=== PATIENT | female | born 1985 | race Caucasian/White ===

== ENCOUNTER → 2021-04-13 | Outpatient (CLI) | payer MEDICAID ==
[2016-12-07 13:25] VITALS: BP 117/63
[~2021-04-13] MED LIST: HYDR-2678 PO; ONDA4TAB7 PO
[2021-04-13 16:28] LABS: BASO % 0 % (0-3); EOS # 0.3 x10^3/uL (0.0-0.7); EOS % 3 % (0-3); HEMATOCRIT 39.8 % (36.0-47.0); HEMOGLOBIN 13.4 g/dL (12.0-15.5); LYMPH # 2.7 x10^3/uL (1.0-4.8); LYMPH % 27 % (24-48); MEAN CORPUSCULAR HEMOGLOBIN 30 pg (25-35); MEAN CORPUSCULAR HGB CONC 34 g/dL (31-37); MEAN CORPUSCULAR VOLUME 90 fL (79-100); MONO # 0.6 x10^3/uL (0.0-1.1); MONO % 6 % (0-9); NEUT # 6.3 x10^3uL (1.8-7.7); NEUT % 63 % (31-73); PLATELET COUNT 275 x10^3/uL (140-400); RED BLOOD COUNT 4.42 x10^6/uL (3.50-5.40); RED CELL DISTRIBUTION WIDTH 14.3 % (11.5-14.5); WHITE BLOOD COUNT 9.9 x10^3/uL (4.0-11.0)
[2021-04-13 16:35] LABS: ALBUMIN 3.9 g/dL (3.4-5.0); ALBUMIN/GLOBULIN RATIO 1.1 (1.0-1.7); CALCIUM 8.7 mg/dL (8.5-10.1); CREATININE 0.6 mg/dL (0.6-1.0); GFR 114.4; TOTAL BILIRUBIN 0.3 mg/dL (0.2-1.0); TOTAL PROTEIN 7.3 g/dL (6.4-8.2)
[2021-04-13 16:48] LABS: BILIRUBIN,URINE NEG (NEG); CLARITY,URINE CLOUDY; COLOR,URINE YELLOW; GLUCOSE,URINE NEG (NEG); NITRITE,URINE NEG (NEG); UROBILINOGEN,URINE 0.2 mg/dL (0.2 mg/dL)
[2021-04-13 16:55] LABS: AMMONIUM BIURATE PRESENT /HPF; BACTERIA,URINE 0 /HPF (0-FEW); SQUAMOUS EPITHELIAL CELL,UR OCC /LPF; WBC,URINE 0 /HPF (0-4)
== END ==
LOC: LAB 15:27
PROVIDERS: ATTEND Family Medicine
DX: L29.9 Pruritus, unspecified (principal)
CPT/HCPCS: 36415; 80053; 81001; 82977; 83690; 84443; 85025

== ENCOUNTER 2021-07-23 18:32 | Emergency (ER) | payer MEDICAID ==
[~2021-07-23] VITALS: Ht 152.4 cm; Wt 58.5 kg
--- NOTE | 2021-07-23 19:27 | PHYS DOC ---
Past History Past Medical History: Seizure Past Surgical History: Alcohol Use: Rarely Drug Use: Marijuana General Adult EDM: Chief Complaint: ABDOMINAL PAIN HPI: HPI: - Tonic clonic seizure- currently non- responsive to noxious stimuli- Patient is a 36 year old female who presents with above hx and complaints of abdomen pain. Pt. had a tonic clonic seizure in waiting room. Glucose was 56. Pt. moved from waiting room to Room 7. Remained post ictal post seizure. No family with patient. Old records shows past history of seizure disorder, C- section and migraine headaches in 11/2016 evaluation. Pt. follows with Dr. Li. Review of Systems: Review of Systems: Limited review of systems because of tonic-clonic seizure GI: Complains of abdominal pain, nausea,. At check-in. Family History: Family History: Not currently available Current Medications: Current Meds: See nursing for home meds Allergies: Allergies: Allergies Coded Allergies Type Severity Reaction Last Updated Verified No Known Drug Allergies 12/07/16 No Physical Exam: PE: Constitutional: Moderate acute distress, postictal and appearance. [] HENT: Normocephalic, atraumatic, bilateral external ears normal, oropharynx moist, no oral exudates, nose normal. [] Eyes: PERRLA, EOMI, conjunctiva normal, no discharge. No focal sensation of eye movement Neck: Normal range of motion, no tenderness, supple, no stridor. [] Cardiovascular: Tachycardia heart rate regular rhythm, no murmur [] Lungs & Thorax: Bilateral breath sounds equal apex scattered wheezes rhonchi on right auscultation [] Abdomen: Bowel sounds normal, soft, no tenderness, no masses, no pulsatile masses. Old surgery scar- C sections Skin: Warm, dry, no erythema, no rash. [] Back: No tenderness, no CVA tenderness. [] Extremities: No tenderness, no cyanosis, no clubbing, ROM intact, no edema. [] Neurologic: Nonresponsive to noxious stimuli. EKG: EKG: My interpretation EKG shows a sinus tachycardia 107 bpm. No findings acute STEMI of contralateral changes. Time EKG 1946 hrs. [] Radiology/Procedures: Radiology/Procedures: [address] [address] IMAGING REPORT Signed PATIENT: BUTCH LAZO ACCOUNT: [id number] : 1985 LOCATION: ER AGE: 36 SEX: F EXAM STATUS: REG ER ORD. PHYSICIAN: KONG CHRISTIANSEN MD REASON: pain brian umbilical, OMNI 240, 30ml & OMNI 300, 60ml PROCEDURE: CT ABD PELV W/ORAL&IV CONTRAST EXAM: CT Abdomen and Pelvis with IV contrast CLINICAL HISTORY: Reason: pain brian umbilical, OMNI 240, 30ml OMNI 300, 60ml / Spl. Instructions: / History: . COMPARISON: none TECHNIQUE: Helical CT of the abdomen and pelvis was performed following the administration of intravenous contrast. Axial, coronal and sagittal reformatted images were generated. PQRS compliance statement - One or more of the following individualized dose reduction techniques were utilized for this study: 1. Automated exposure control 2. Adjustment of the mA and/or kV according to patient size 3. Use of iterative reconstruction technique FINDINGS: Lower Chest: Normal bibasilar subsegmental atelectasis, right greater than left. Abdomen and Pelvis: The liver, gallbladder, spleen, pancreas, adrenals, kidneys are unremarkable. Subcentimeter left inferior pole hypodensity, too small to characterize favoring simple cysts. No nephrolithiasis or hydroureteronephrosis. Stomach is distended with likely ingested material. The small and large bowel demonstrate no evidence of obstruction or acute inflammatory process. Normal-appearing appendix is visualized. There is a 1.9 cm crenulated right ovarian follicle with a small amount of simple appearing fluid within the pelvis, consistent with a ruptured right corpus luteal cyst. No pathologic abdominal or pelvic adenopathy. Vasculature is normal in course and caliber. Bladder is unremarkable. Uterus is normal in appearance. Abdominal wall shows no evidence of acute process with a tiny fat-containing umbilical hernia. No acute osseous abnormalities IMPRESSION: Findings of ruptured right corpus luteal cyst with small amount of simple, likely physiologic fluid within the pelvis. Electronically signed by: Garcia Aleman DO (07/23/2021 11:23 PM) [facility] DICTATED AND SIGNED BY: GARCIA ALEMAN DO DATE: 07/23/21 7222 CC: ALONA LI MD; KONG CHRISTIANSEN MD ~MTH0 0 [][place] [address] [facility] [address] [place] [id number] IMAGING REPORT Signed PATIENT: BUTCH LAZO ACCOUNT: [id number] : 1985 LOCATION: ER AGE: 36 SEX: F EXAM STATUS: REG ER ORD. PHYSICIAN: KONG CHRISTIANSEN MD REASON: pain PROCEDURE: ACUTE ABDOMEN SERIES Exam: Acute abdominal series INDICATION: Pain TECHNIQUE: Frontal view of the chest with upright and supine views of the abdomen Comparisons: None FINDINGS: The cardiomediastinal silhouette and pulmonary vessels are within normal limits. The lung and pleural spaces are clear. Air and stool are noted throughout the colon to level the rectum in a nonobstructive bowel gas pattern. No suspicious masses or calcifications. Visualized osseous structures are unremarkable. IMPRESSION: 1. No acute cardiopulmonary process. 2. Nonobstructive bowel gas pattern. Electronically signed by: Komal Hewitt MD (07/23/2021 9:33 PM) [facility] DICTATED AND SIGNED BY: KOMAL HEWITT MD DATE: 07/23/212131 CC: ALONA LI MD; KONG CHRISTIANSEN MD ~MTH0 0 IMAGING REPORT Signed PATIENT: BUTCH LAZO ACCOUNT: [id number] : 1985 LOCATION: ER AGE: 36 SEX: F EXAM STATUS: REG ER ORD. PHYSICIAN: KONG CHRISTIANSEN MD REASON: tonic clonic seizure- Head ache, fall PROCEDURE: CT HEAD AND CERVICAL SPINE WO Exam: CT head and cervical spine without contrast INDICATION: , Chronic seizures TECHNIQUE: Sequential axial images through the head and cervical spine were obtained without the administration of IV contrast. Exposure: One or more of the following in the visualized dose reduction techniques were utilized for this examination: 1. Automated exposure control 2. Adjustment of the MA and/or KV according to patient size 3. Use of iterative of reconstructive technique Comparisons: None FINDINGS: Head: No focal parenchymal lesion or hemorrhage is identified. There is no midline shift or sulcal effacement. No acute vascular territory infarction is identified. Davidson-white distinction is preserved. The ventricular system is within normal limits without compression hydrocephalus. The basal cisterns are well maintained. The visualized portions of the paranasal sinuses and mastoid air cells are well- pneumatized. No acute fractures. Cervical spine: Straightening of cervical spine which may positional. Vertebral body heights are well-maintained. Fracture to the cervical spine is not identified. No significant spondylotic change in the cervical spine. Visualized paraspinal soft tissues are unremarkable. IMPRESSION: 1. No acute intracranial abnormality. 2. Negative CT C-spine for acute traumatic injury. Electronically signed by: Komal Hewitt MD (07/23/2021 8:56 PM) [facility] DICTATED AND SIGNED BY: KOMAL HEWITT MD DATE: 07/23/212053 CC: ALONA LI MD; KONG CHRISTIANSEN MD ~MTH0 0 Heart Score: C/O Chest Pain: N/A HEART Score for Chest Pain: HEART Score for Chest Pain Response (Comments) Value History Slighlty/Non-Suspicious 0 ECG Nonspecific Repolarizatio 1 Age < 45 0 Risk Factors 1 or 2 Risk Factors 1 Troponin < Normal Limit 0 Total 2 Risk Factors: Risk Factors: DM, Current or recent (<one month) smoker, HTN, HLP, family history of CAD, obesity. Risk Scores: Score 0 - 3: 2.5% MACE over next 6 weeks - Discharge Home Score 4 - 6: 20.3% MACE over next 6 weeks - Admit for Clinical Observation Score 7 - 10: 72.7% MACE over next 6 weeks - Early Invasive Strategies Course & Med Decision Making: Course & Med Decision Making Pertinent Labs and Imaging studies reviewed. (See chart for details) Pt. now alert and able to answer questions.=2100 hrs. Patient states she has increasingly severe abdomen pain throughout the day. Localizes pain to the periumbilical area. Patient states she has been compliant with her seizure meds consisting of Keppra and Topamax. Patient denies any intake of bad food. No recent travel. No specific ill contacts. Has not had Covid vaccination. Patient denies previous surgeries. Has had subjective fever and chills. . No history of trauma. Patient does smoke tobacco and marijuana. Impression: 1. Abdomen Pain 2. Tonic Clonic Seizure- on meds 3. Hx. prior 4. Tobacco and Marijuan Use 5. Leukocytosis 21. with 78 Segs 6. Mild Hypokaemia 3.2 7. Elevated Bun and Creat. 8. Hypoglycemia 9. Dehydration Elev. Bun 25./ creat. 1.1 10.Suspect Ovarian Cyst rupture. 11. Elevated D-dimer 0.98 12. Rt. lower abdomen pain [] Dragon Disclaimer: Dragon Disclaimer: This electronic medical record was generated, in whole or in part, using a voice recognition dictation system. Departure Departure: Referrals: ALONA LI MD (PCP) Scripts Cephalexin (KEFLEX) 500 Mg Capsule 500 MG PO TID for leukocytosis for 7 Days, #21 CAP Prov: KONG CHRISTIANSEN MD 07/24/21 Dragon Disclaimer This chart was dictated in whole or in part using Voice Recognition software in a busy, high-work load, and often noisy Emergency Department environment. It may contain unintended and wholly unrecognized errors or omissions. KONG CHRISTIANSEN MD Jul 23, 2021 19:27
[2021-07-23] MEDS ORDERED: IV RINGERS SOLUTION,LACTATED 1,000 ML IV SCH (19:45)
[2021-07-23 20:06] LABS: BASO # 0.1 x10^3/uL (0.0-0.2); BASO % 1 % (0-3); EOS % 0 % (0-3); HEMATOCRIT 48.4 % (36.0-47.0); HEMOGLOBIN 15.4 g/dL (12.0-15.5); LYMPH # 2.9 x10^3/uL (1.0-4.8); LYMPH % 11 % (24-48); MEAN CORPUSCULAR HEMOGLOBIN 30 pg (25-35); MEAN CORPUSCULAR HGB CONC 32 g/dL (31-37); MEAN CORPUSCULAR VOLUME 94 fL (79-100); MONO # 1.2 x10^3/uL (0.0-1.1); MONO % 5 % (0-9); NEUT # 21.8 x10^3uL (1.8-7.7); NEUT % 84 % (31-73); PLATELET COUNT 325 x10^3/uL (140-400); RED BLOOD COUNT 5.16 x10^6/uL (3.50-5.40); RED CELL DISTRIBUTION WIDTH 14.5 % (11.5-14.5); WHITE BLOOD COUNT 26.1 x10^3/uL (4.0-11.0)
[2021-07-23] MEDS ORDERED: DEXTROSE 50% 25 GM / 50ML DISP.SYRIN. IV ONE (20:15)
[2021-07-23 20:17] LABS: CLARITY,URINE CLEAR; COLOR,URINE YELLOW; GLUCOSE,URINE NEG (NEG)
[2021-07-23 20:18] LABS: BARBITURATES NEG (NEG); BENZODIAZEPINES NEG (NEG); BILIRUBIN,URINE MOD (NEG); CANNABINOIDS POS (NEG); COCAINE NEG (NEG); METHADONE NEG (NEG); NITRITE,URINE NEG (NEG); OPIATES NEG (NEG); PHENCYCLIDINE NEG (NEG); UROBILINOGEN,URINE 0.2 mg/dL (0.2 mg/dL)
[2021-07-23 20:22] LABS: AMPHETAMINE/METHAMPHETAMINE NEG (NEG)
[2021-07-23 20:24] LABS: ALBUMIN 4.7 g/dL (3.4-5.0); CALCIUM 9.8 mg/dL (8.5-10.1); CREATININE 1.1 mg/dL (0.6-1.0); DIRECT BILIRUBIN 0.1 mg/dL (0.0-0.2); GFR 56.9; MAGNESIUM 2.1 mg/dL (1.8-2.4); POTASSIUM 3.2 mmol/L (3.5-5.1); TOTAL BILIRUBIN 0.5 mg/dL (0.2-1.0); TOTAL PROTEIN 8.6 g/dL (6.4-8.2)
[2021-07-23 20:27] LABS: BACTERIA,URINE FEW /HPF (0-FEW); SQUAMOUS EPITHELIAL CELL,UR FEW /LPF
[2021-07-23 20:45] LABS: % LYMPHS 16 % (24-48); % MONOS 6 % (0-10); % SEGS 78 % (35-66); PLT ESTIMATE ADEQUATE (ADEQUATE)
--- NOTE | 2021-07-23 20:58 | RAD ---
Exam: CT head and cervical spine without contrast INDICATION: , Chronic seizures TECHNIQUE: Sequential axial images through the head and cervical spine were obtained without the admi nistration of IV contrast. Exposure: One or more of the following in the visualized dose reduction techniques were utilized for this examination: 1. Automated exposure control 2. Adjustment of the MA and/or KV according to patient size 3. Use of iterative of reconstructive technique Comparisons: None FINDINGS: Head: No focal parenchymal lesion or hemorrhage is identified. There is no midline shift or sulcal effaceme nt. No acute vascular territory infarction is identified. Davidson-white distinction is preserved. The ventricular system is within normal limits without compression hydrocephalus. The basal cisterns are well maintained. The visualized portions of the paranasal sinuses and mastoid air cells are well-pneumatized. No acute fractures. Cervical spine: Straightening of cervical spine which may positional. Vertebral body heights are well-maintained. Fracture to the cervical spine is not identified. No significant spondylotic change in the cervical spine. Visualized paraspinal soft tissues are unremarkable. IMPRESSION: 1. No acute intracranial abnormality. 2. Negative CT C-spine for acute traumatic injury. Electronically signed by: Komal Anand MD (07/23/2021 8:56 PM) [facility]
[2021-07-23] MEDS ORDERED: TOPIRAMATE 25 MG TABLET. PO ONE (21:30)
[2021-07-23] MEDS ORDERED: IOHEXOL 300 MG/ML 75 ML VIAL. IV ONE (21:30)
[2021-07-23] MEDS ORDERED: ONDANSETRON PF 4 MG/2 ML VIAL. IVP ONE (21:30)
[2021-07-23] MEDS ORDERED: IOHEXOL 240 MG/ML 50ML VIAL. PO ONE (21:30)
[2021-07-23] MEDS ORDERED: FAMOTIDINE 20 MG/2 ML VIAL IVP ONE (21:30)
[2021-07-23] MEDS ORDERED: CONTRAST GIVEN. MC PRN (21:30)
[2021-07-23] MEDS ORDERED: MORPHINE SULFATE 10 MG/ML SYRINGE. SQ ONE (21:30)
--- NOTE | 2021-07-23 21:35 | RAD ---
Exam: Acute abdominal series INDICATION: Pain TECHNIQUE: Frontal view of the chest with upright and supine views of the abdomen Comparisons: None FINDINGS: The cardiomediastinal silhouette and pulmonary vessels are within normal limits. The lung and pleural spaces are clear. Air and stool are noted throughout the colon to level the rectum in a nonobstructive bowel gas patter n. No suspicious masses or calcifications. Visualized osseous structures are unremarkable. IMPRESSION: 1. No acute cardiopulmonary process. 2. Nonobstructive bowel gas pattern. Electronically signed by: Komal Anand MD (07/23/2021 9:33 PM) [facility]
--- NOTE | 2021-07-23 21:48 | EKG ---
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
[2021-07-23] MEDS ORDERED: levETIRAcetam 500 MG/5 ML VIAL IV ONE (22:09)
[2021-07-23] MEDS ORDERED: IV NORMAL SALINE 100ML 100 ML ONE (22:09)
--- NOTE | 2021-07-23 23:26 | RAD ---
EXAM: CT Abdomen and Pelvis with IV contrast CLINICAL HISTORY: Reason: pain brian umbilical, OMNI 240, 30ml OMNI 300, 60ml / Spl. Instructions: / History: . COMPARISON: none TECHNIQUE: Helical CT of the abdomen and pelvis was performed following the administration of intrave nous contrast. Axial, coronal and sagittal reformatted images were generated. PQRS compliance statement - One or more of the following individualized dose reduction techniques wer e utilized for this study: 1. Automated exposure control 2. Adjustment of the mA and/or kV according to patient size 3. Use of iterative reconstruction technique FINDINGS: Lower Chest: Normal bibasilar subsegmental atelectasis, right greater than left. Abdomen and Pelvis: The liver, gallbladder, spleen, pancreas, adrenals, kidneys are unremarkable. Subcentimeter left infe rior pole hypodensity, too small to characterize favoring simple cysts. No nephrolithiasis or hydrour eteronephrosis. Stomach is distended with likely ingested material. The small and large bowel demonst rate no evidence of obstruction or acute inflammatory process. Normal-appearing appendix is visualize d. There is a 1.9 cm crenulated right ovarian follicle with a small amount of simple appearing fluid within the pelvis, consistent with a ruptured right corpus luteal cyst. No pathologic abdominal or pelvic adenopathy. Vasculature is normal in course and caliber. Bladder is unremarkable. Uterus is normal in appearance. Abdominal wall shows no evidence of acute process with a tiny fat-containing umbilical hernia. No acute osseous abnormalities IMPRESSION: Findings of ruptured right corpus luteal cyst with small amount of simple, likely physiologic fluid w ithin the pelvis. Electronically signed by: Ton Aleman DO (07/23/2021 11:23 PM) [facility]
[2021-07-23] MEDS ORDERED: IV NORMAL SALINE 50ML 50 ML ONE (23:45)
[2021-07-23] MEDS ORDERED: cefTRIAXone SODIUM 1 GM VIAL ONE (23:45)
[2021-07-24] MEDS ORDERED: CEPH500C PO (00:31)
[2021-07-24] MEDS ORDERED: APIXABAN 5 MG TABLET. PO ONE (01:00)
[2021-07-24 01:24] VITALS: BP 108/67
== END 2021-07-24 01:45 | disposition home or self-care (01) ==
LOC: ER 18:35
DX: G40.909 Epilepsy, unspecified, not intractable, without status epilepticus (principal); D72.89 Other specified disorders of white blood cells; E87.6 Hypokalemia; R79.89 Other specified abnormal findings of blood chemistry; E16.2 Hypoglycemia, unspecified; E86.0 Dehydration; R79.1 Abnormal coagulation profile; R10.31 Right lower quadrant pain; G43.909 Migraine, unspecified, not intractable, without status migrainosus; Z98.890 Other specified postprocedural states
CPT/HCPCS: 36415; 70450; 72125; 74022; 74177; 80048; 80076; 80307; 81001; 81025; 82150; 82550; 82947; 83690; 83735; 83880; 84443; 84484; 84702; 85007; 85025; 85379; 85610; 85730; 87040; 93005; 96361; 96365; 96368; 96375; 99285; J0696; J1953; J2060; J2405; J3490; J7120; Q9966; Q9967

== ENCOUNTER 2021-08-20 16:39 | Emergency (ER) | payer MEDICAID ==
[~2021-08-20] VITALS: Ht 152.4 cm; Wt 58.5 kg
[~2021-08-20 16:39] MED LIST changes: +CEPH500C PO
[2021-08-20] MEDS ORDERED: MORPHINE SULFATE 4 MG/ML DISP.SYRIN. IV ONE (17:00)
[2021-08-20] MEDS ORDERED: IV NORMAL SALINE 1,000ML 1,000 ML IV ONE (17:00)
[2021-08-20] MEDS ORDERED: ONDANSETRON PF 4 MG/2 ML VIAL. IVP ONE (17:00)
--- NOTE | 2021-08-20 17:18 | EKG ---
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
[2021-08-20 17:29] LABS: BASO # 0.1 x10^3/uL (0.0-0.2); BASO % 1 % (0-3); EOS # 0.3 x10^3/uL (0.0-0.7); EOS % 2 % (0-3); HEMATOCRIT 41.6 % (36.0-47.0); LYMPH # 1.6 x10^3/uL (1.0-4.8); LYMPH % 10 % (24-48); MEAN CORPUSCULAR HEMOGLOBIN 30 pg (25-35); MEAN CORPUSCULAR HGB CONC 34 g/dL (31-37); MEAN CORPUSCULAR VOLUME 89 fL (79-100); MONO # 0.8 x10^3/uL (0.0-1.1); MONO % 5 % (0-9); NEUT # 13.7 x10^3uL (1.8-7.7); NEUT % 83 % (31-73); PLATELET COUNT 275 x10^3/uL (140-400); RED BLOOD COUNT 4.69 x10^6/uL (3.50-5.40); RED CELL DISTRIBUTION WIDTH 14.2 % (11.5-14.5); WHITE BLOOD COUNT 16.4 x10^3/uL (4.0-11.0)
[2021-08-20 17:36] LABS: U PREG PATIENT NEGATIVE (NEG)
--- NOTE | 2021-08-20 17:41 | PHYS DOC ---
Past History Past Medical History: Seizure Additional Past Medical Histor: c diff, colitis Past Surgical History: Alcohol Use: Rarely Drug Use: Marijuana General Adult EDM: Chief Complaint: ABDOMINAL PAIN HPI: HPI: Patient is a 36-year-old female who presents with nausea vomiting, abdominal pain. Patient states that she has been seeing Dr. Harrison for her chronic abdominal pain. Patient recently had an EGD and was told she had GERD. Patient states "I have a history of gastritis and pancreatitis and my stomach is hurting really bad". Denies fever or recent illness. Patient denies taking anything for pain prior to arrival. Review of Systems: Review of Systems: ROS At least 10 ROS systems have been reviewed and are negative except as documented in the HPI. General: Negative except as outlined in HPI above. Skin: Negative except as outlined in HPI above. HEENT: Negative except as outlined in HPI above. Neck: Negative except as outlined in HPI above. Respiratory: Negative except as outlined in HPI above.. Cardiovascular: Negative except as outlined in HPI above. Abdomen: Negative except as outlined in HPI above. : Negative except as outlined in HPI above. Back/MSK: Negative except as outlined in HPI above. Neuro: Negative except as outlined in HPI above. Psych: Negative except as outlined in HPI above. Current Medications: Current Meds: Current Medications Medications (Trade) Dose Ordered Sig/Jono Start Time Stop Time Status Last Admin Dose Admin Lorazepam (Ativan Inj) 1 mg 1X ONCE 08/20/21 17:15 08/20/21 17:16 DC Morphine Sulfate (Morphine 4mg Syringe) 4 mg 1X ONCE 08/20/21 17:00 08/20/21 17:08 DC Ondansetron HCl (Zofran) 4 mg 1X ONCE 08/20/21 17:00 08/20/21 17:08 DC Sodium Chloride 1,000 ml @ 1,000 mls/hr 1X ONCE 08/20/21 17:00 08/20/21 17:59 Allergies: Allergies: Allergies Coded Allergies Type Severity Reaction Last Updated Verified No Known Drug Allergies 12/07/16 No Physical Exam: PE: Constitutional: Well developed, well nourished, no acute distress, non-toxic appearance. [] HENT: Normocephalic, atraumatic, bilateral external ears normal, oropharynx moist, no oral exudates, nose normal. [] Eyes: PERRLA, EOMI, conjunctiva normal, no discharge. [] Neck: Normal range of motion, no tenderness, supple, no stridor. [] Cardiovascular:Heart rate regular rhythm, no murmur [] Lungs & Thorax: Bilateral breath sounds clear to auscultation [] Abdomen: Bowel sounds normal, soft, generalized tenderness, no masses, no puls atile masses. [] Skin: Warm, dry, no erythema, no rash. [] Back: No tenderness, no CVA tenderness. [] Extremities: No tenderness, no cyanosis, no clubbing, ROM intact, no edema. [] Neurologic: Alert and oriented X 3, normal motor function, normal sensory function, no focal deficits noted. [] Psychologic: Affect normal, judgement normal, mood normal. [] Current Patient Data: Labs: Laboratory Tests Test 08/20/21 17:13 White Blood Count 16.4 x10^3/uL (4.0-11.0) H Red Blood Count 4.69 x10^6/uL (3.50-5.40) Hemoglobin 14.0 g/dL (12.0-15.5) Hematocrit 41.6 % (36.0-47.0) Mean Corpuscular Volume 89 fL (79-100) Mean Corpuscular Hemoglobin 30 pg (25-35) Mean Corpuscular Hemoglobin Concent 34 g/dL (31-37) Red Cell Distribution Width 14.2 % (11.5-14.5) Platelet Count 275 x10^3/uL (140-400) Neutrophils (%) (Auto) 83 % (31-73) H Lymphocytes (%) (Auto) 10 % (24-48) L Monocytes (%) (Auto) 5 % (0-9) Eosinophils (%) (Auto) 2 % (0-3) Basophils (%) (Auto) 1 % (0-3) Neutrophils # (Auto) 13.7 x10^3uL (1.8-7.7) H Lymphocytes # (Auto) 1.6 x10^3/uL (1.0-4.8) Monocytes # (Auto) 0.8 x10^3/uL (0.0-1.1) Eosinophils # (Auto) 0.3 x10^3/uL (0.0-0.7) Basophils # (Auto) 0.1 x10^3/uL (0.0-0.2) Vital Signs: Vital Signs Date Time Temp Pulse Resp B/P (MAP) Pulse Ox O2 Delivery O2 Flow Rate FiO2 08/20/21 16:52 97.7 85 25 139/72 (94) 98 EKG: EKG: Sinus rhythm. Heart rate [address] Perez at 1713. [] Radiology/Procedures: Radiology/Procedures: []PQRS Compliance Statement: One or more of the following individualized dose reduction techniques were utilized for this examination: 1. Automated exposure control 2. Adjustment of the mA and/or kV according to patient size 3. Use of iterative reconstruction technique CT ABDOMEN+PELVIS WO Clinical Indication: Reason: abdominal pain / Spl. Instructions: / History: Comparison: CT abdomen and pelvis of contrast July 23, 2021. Technique: Helical CT imaging of the abdomen and pelvis is performed without IV or oral contrast. Findings: The lung bases are clear. Cardiac size is normal. The liver, gallbladder, spleen, pancreas, adrenal glands, abdominal aorta, and kidneys are normal. The stomach is distended mainly with air. There is no dilated small bowel. The appendix is normal. The distal colon is decompressed accentuating the wall thickness. No colon wall thickening is identified. No abdominal adenopathy or free fluid. The urinary bladder is decompressed. The uterus and ovaries are unremarkable. No pelvic free fluid is seen. No acute bone abnormality. IMPRESSION: No acute abdominal or pelvic abnormality. Electronically signed by: Magno Franks MD (08/20/2021 5:40 PM) [id number] Heart Score: C/O Chest Pain: No Risk Factors: Risk Factors: DM, Current or recent (<one month) smoker, HTN, HLP, family history of CAD, obesity. Risk Scores: Score 0 - 3: 2.5% MACE over next 6 weeks - Discharge Home Score 4 - 6: 20.3% MACE over next 6 weeks - Admit for Clinical Observation Score 7 - 10: 72.7% MACE over next 6 weeks - Early Invasive Strategies Course & Med Decision Making: Course & Med Decision Making Pertinent Labs and Imaging studies reviewed. (See chart for details) [] 36-year-old female presents with nausea/vomiting and abdominal pain. Patient was recently diagnosed with GERD. Patient states that she has a history of pancreatitis and gastritis. CT abdomen and pelvis ordered to rule out acute abnormality. Patient given morp linette and Zofran for pain and nausea. WBC, 16.4. All other labs are unremarkable. Troponin is negative. CT abdomen pelvis is unremarkable. Patient was also given 1 mg of Ativan for anxiety. Patient states that recently she has suffered from anxiety due to her health. Discussed results with patient. Patient symptoms are most likely from GERD which is also causing anxiety. Patient states that her pain has improved. Advised patient to call her PCP and make a follow-up appointment in the next 2 to 3 days for further management. Discussed return precautions. Patient should take ibuprofen and Tylenol at home for discomfort. Patient is hemodynamically stable upon disposition. flaregames Disclaimer: flaregames Disclaimer: This electronic medical record was generated, in whole or in part, using a voice recognition dictation system. Departure Departure: Impression: Primary Impression: GERD (gastroesophageal reflux disease) Qualified Codes: K21.9 - Gastro-esophageal reflux disease without esophagitis Additional Impression: Anxiety Disposition: HOME / SELF CARE / HOMELESS Condition: STABLE Referrals: ALONA LI MD (PCP) Patient Instructions: Anxiety and Panic Attacks, [id number], Diet for Gastroesophageal Reflux Disease, Adult, [id number] Additional Instructions: You were seen in the emergency room for abdominal pain. All of your labs were unremarkable. CT of your abdomen and pelvis was unremarkable. Your pain improved after you were given pain medication. Please call your PCP to make a follow-up appointment in the next 2 to 3 days for further management. Return to the emergency room if you have worsening symptoms or concerns. EMERGENCY DEPARTMENT GENERAL DISCHARGE INSTRUCTIONS Thank you for coming to [facility] (ED) today and trusting us with you care. We trust that you had a positivie experience in our Emergency Department. If you wish to speak to the department management, you may call the director at [phone]. YOUR FOLLOW UP INSTRUCTIONS ARE FOLLOWS: 1. Do you have a private Doctor? If you do not have a private doctor, please ask for a resource list of physicians or clinics that may be able to assist you with follow up care. 2. The Emergency Physician has interpreted your x-rays. The X-Ray specialist will also review them. If there is a change in the findings, you will be notified in 48 hours when at all possible. 3. A lab test or culture has been done, your results will be reviewed and you will be notified if you need a change in treatment. ADDITIONAL INSTRUCTIONS AND INFORMATION: 1. Your care today has been supervised by a physician who is specially trained in emergency care. Many problems require more than one evaluation for a complete diagnosis and treatment. We recommend that you schedule your follow up appointment as recommended to ensure complete treatment of you illness or injury. If you are unable to obtain follow up care and continue to have a problem, or if your condition worsens, we recommend that you return to the ED. 2. We are not able to safely determine your condition over the phone nor are we able to give sound medical advice over the phone. For these safety reasons, if you call for medical advice we will ask you to come to the ED for further evaluation. 3. If you have any questions regarding these discharge instructions please call the ED at [phone]. SAFETY INFORMATION: In the interest of safety, wellness, and injury prevention; we encourage you to wear your sealbelt, if you smoke; quite smoking, and we encourage family to use a protective helmet for bicycling and other sporting events that present an increased risk for head injury. IF YOUR SYMPTOMS WORSEN OR NEW SYMPTOMS DEVELOP, OR YOU HAVE CONCERNS ABOUT YOUR CONDITION; OR IF YOUR CONDITION WORSENS WHILE YOU ARE WAITING FOR YOUR FOLLOW UP APPOINTMENT; EITHER CONTACT YOUR PRIMARY CARE DOCTOR, THE PHYSICIAN WHOSE NAME AND NUMBER YOU WERE GIVEN, OR RETURN TO THE ED IMMEDIATELY. HARI WARREN APRN Aug 20, 2021 17:40
[2021-08-20 17:44] LABS: BILIRUBIN,URINE NEG (NEG); CLARITY,URINE CLOUDY; COLOR,URINE YELLOW; GLUCOSE,URINE NEG (NEG)
[2021-08-20 17:45] LABS: BACTERIA,URINE FEW /HPF (0-FEW); NITRITE,URINE NEG (NEG); SQUAMOUS EPITHELIAL CELL,UR MANY /LPF; UROBILINOGEN,URINE 0.2 mg/dL (0.2 mg/dL)
[2021-08-20 17:46] LABS: CALCIUM 9.2 mg/dL (8.5-10.1); CREATININE 0.6 mg/dL (0.6-1.0); GFR 114.4; POTASSIUM 3.6 mmol/L (3.5-5.1)
[2021-08-20 17:53] LABS: ALBUMIN 4.2 g/dL (3.4-5.0); ALBUMIN/GLOBULIN RATIO 1.1 (1.0-1.7); MAGNESIUM 1.7 mg/dL (1.8-2.4); TOTAL BILIRUBIN 0.4 mg/dL (0.2-1.0); TOTAL PROTEIN 7.9 g/dL (6.4-8.2)
[2021-08-20 18:44] VITALS: BP 111/67
[2021-08-20] MEDS ORDERED: LOPERAMIDE 2 MG CAPSULE PO ONE (19:15)
== END 2021-08-20 19:17 | disposition home or self-care (01) ==
LOC: ER 16:39
DX: K21.9 Gastro-esophageal reflux disease without esophagitis (principal); F41.9 Anxiety disorder, unspecified; Z98.890 Other specified postprocedural states
CPT/HCPCS: 36415; 74176; 80053; 81001; 81025; 83690; 83735; 84484; 85025; 93005; 96374; 96375; 99285; J2270; J2405; J7030

== ENCOUNTER 2021-09-24 07:26 | Emergency (ER) | payer MEDICAID ==
[~2021-09-24] VITALS: Ht 152.4 cm; Wt 58.5 kg
[2021-09-24 07:34] VITALS: BP 121/85
[2021-09-24] MEDS ORDERED: ONDANSETRON PF 4 MG/2 ML VIAL. ONE (07:34)
[2021-09-24] MEDS ORDERED: PROMETHAZINE 12.5 MG SUPP.RECT. ONE (07:44)
[2021-09-24] MEDS ORDERED: PROMETHAZINE 25 MG TABLET. PO ONE (07:45)
[2021-09-24] MEDS ORDERED: ONDANSETRON ODT 4 MG TAB.RAPDIS PO ONE (07:45)
[2021-09-24] MEDS ORDERED: PROM12.58 PO (07:48)
--- NOTE | 2021-09-24 07:49 | PHYS DOC ---
Past History Past Medical History: Seizure Additional Past Medical Histor: c diff, colitis Past Surgical History: Alcohol Use: Rarely Drug Use: Marijuana Adult General Chief Complaint Chief Complaint: GI PROBLEM HPI HPI Patient is a 36-year-old female presenting via EMS for multiple complaints. She initially called EMS for transport to our facility for chronic dental pain of 1 year. On arrival, patient was found to be hemodynamically stable by EMS and subsequently transported to our facility, no intervention was provided. On arrival, she states that she has chronic abdominal pain. States that she has dental pain but really would like to be evaluated for nausea and x1 episode of diarrhea this morning. States that she also has had suprapubic cramping since starting her period earlier this morning. Last p.o. intake was yesterday evening at 6 PM. Denies any significant major changes in health, medications, sick contacts, recent travel, or concerning ingestions. States that she has a GI physician in the outpatient setting but has not followed up, she missed her appointment last week. She also has a dentist but is not been seen by this individual in over a year. She is unvaccinated against COVID-19 citing history of seizures as why she cannot get the vaccine Review of Systems Review of Systems Fourteen body systems of review of systems have been reviewed. See HPI for pertinent positives and negative responses, other simms all other systems are negative, non-pertinent or non-contributory Allergies Allergies Allergies Coded Allergies Type Severity Reaction Last Updated Verified No Known Drug Allergies 12/07/16 No Physical Exam Physical Exam Constitutional: Well developed, age-appropriate, no acute distress, non-toxic appearance. HENT: Normocephalic, atraumatic, bilateral external ears normal, oropharynx moist, no oral exudates, nose normal. Eyes: PERRLA, EOMI, conjunctiva normal, no discharge. Neck: Normal range of motion, no tenderness, supple, no stridor. Cardiovascular: Heart rate regular, sinus rhythm, no murmurs rubs or gallops Lungs & Thorax: Bilateral breath sounds clear to auscultation Abdomen: Bowel sounds normal, soft, no tenderness, no guarding or rebound, no masses, no pulsatile masses. Nonsurgical abdomen, no peritoneal signs Skin: Warm, dry, no erythema, no rash patient has numerous self-induced self excoriations to face. Back: No tenderness, no CVA tenderness. Extremities: No tenderness, no cyanosis, no clubbing, ROM intact, no edema. Neurologic: Alert and oriented X 3, grossly normal motor & sensory function, no focal deficits noted. Psychologic: Anxious affect and mood Current Patient Data Vital Signs Vital Signs Date Time Temp Pulse Resp B/P (MAP) Pulse Ox O2 Delivery O2 Flow Rate FiO2 09/24/21 07:34 98.0 83 18 121/85 (97) 94 Room Air Vital Signs Date Time Temp Pulse Resp B/P (MAP) Pulse Ox O2 Delivery O2 Flow Rate FiO2 09/24/21 07:34 98.0 83 18 121/85 (97) 94 Room Air EKG EKG [] Radiology/Procedures Radiology/Procedures [] Heart Score C/O Chest Pain: No Risk Factors: Risk Factors: DM, Current or recent (<one month) smoker, HTN, HLP, family history of CAD, obesity. Risk Scores: Risk Factors: DM, Current or recent (<one month) smoker, HTN, HLP, family history of CAD, obesity. Course & Med Decision Making Course & Med Decision Making ABCs unremarkable Patient a poor historian with scattered tangential complaints. Physical examination unremarkable Patient has chronic dental issues that do not require immediate attention Patient started. Menstrual cycle today, suffering from suprapubic cramps that do not require immediate attention Patient reports generalized nausea and x1 episode of diarrhea, she is unvaccinated for COVID-19 and subsequently swabbed with PCR Covid test pending today. P.o. Phenergan administered with improvement in symptoms Patient has good access to PCP, dentist and GI physicians, advised her to contact all of these providers first thing in the morning to review ER visit today and need for close outpatient follow-up Strict return precautions discussed with good understanding by patient, all questions and concerns addressed prior to departure Dragon Disclaimer Dragon Disclaimer This electronic medical record was generated, in whole or in part, using a voice recognition dictation system. Departure Departure: Impression: Primary Impression: Nausea Additional Impressions: Diarrhea PMS (premenstrual syndrome) Chronic dental pain Person under investigation for COVID-19 Disposition: HOME / SELF CARE / HOMELESS Condition: STABLE Referrals: ALONA LI MD (PCP) Additional Instructions: You were seen for body aches and cramps, chronic dental pain, diarrhea, and possible infection with COVID-19. Your vitals and physical exam was reassuring. We tested you for COVID-19 but this test does not come back for 1 to 2 days. In the meantime you need to quarantine yourself at home away from all other individuals, especially those who are elderly or have any other chronic health issues or an immunocompromised status. You should return to the ED if you develop worsening cough, shortness of breath, chest pain, or any other new or concerning symptoms. Alternate Tylenol and ibuprofen as needed for body aches and pain. If your test does come back positive you need to quarantine yourself for 10 days until symptom-free. You should make sure to drink plenty of fluids and get plenty of rest. Please call your primary care physician, dentist and GI physician first thing to review ER visit and need for close outpatient follow- up Scripts Promethazine Hcl (PROMETHAZINE HCL) 12.5 Mg Tablet 1 TAB PO Q6-8HRS for nausea for 5 Days, #20 TAB 0 Refills Prov: QUINCY CAM DO 09/24/21 Problem Qualifiers QUINCY CAM DO Sep 24, 2021 07:49
[2021-09-24] MEDS ORDERED: PROMETHAZINE 12.5 MG SUPP.RECT. PR ONE (08:00)
== END 2021-09-24 07:50 | disposition home or self-care (01) ==
LOC: ER 07:26
DX: R19.7 Diarrhea, unspecified (principal); R11.0 Nausea; G89.29 Other chronic pain; K08.89 Other specified disorders of teeth and supporting structures; N94.3 Premenstrual tension syndrome; Z20.822 Contact with and (suspected) exposure to COVID-19; Z98.890 Other specified postprocedural states
CPT/HCPCS: 99283

== ENCOUNTER 2022-01-08 12:06 | Emergency (ER) | payer MEDICAID ==
[~2022-01-08] VITALS: Ht 157.5 cm; Wt 53.5 kg
[~2022-01-08 12:06] MED LIST changes: +PROM12.58 PO
[2022-01-08] MEDS ORDERED: IV NORMAL SALINE 1,000ML 1,000 ML IV ONE (13:30)
[2022-01-08] MEDS ORDERED: ONDANSETRON PF 4 MG/2 ML VIAL. IVP ONE (13:30)
[2022-01-08 13:42] LABS: FECAL OB PT POSITIVE (NEG)
[2022-01-08 13:44] LABS: CLARITY,URINE HAZY; COLOR,URINE YELLOW; GLUCOSE,URINE NEG (NEG)
[2022-01-08 13:45] LABS: BACTERIA,URINE MOD /HPF (0-FEW); NITRITE,URINE NEG (NEG); SQUAMOUS EPITHELIAL CELL,UR MANY /LPF; UROBILINOGEN,URINE 0.2 mg/dL (0.2 mg/dL)
[2022-01-08 14:37] LABS: BASO % 0 % (0-3); EOS # 0.2 x10^3/uL (0.0-0.7); EOS % 1 % (0-3); HEMOGLOBIN 14.2 g/dL (12.0-15.5); LYMPH # 0.9 x10^3/uL (1.0-4.8); LYMPH % 4 % (24-48); MEAN CORPUSCULAR HEMOGLOBIN 29 pg (25-35); MEAN CORPUSCULAR HGB CONC 32 g/dL (31-37); MEAN CORPUSCULAR VOLUME 91 fL (79-100); MONO # 1.4 x10^3/uL (0.0-1.1); MONO % 6 % (0-9); NEUT # 20.1 x10^3uL (1.8-7.7); NEUT % 89 % (31-73); PLATELET COUNT 288 x10^3/uL (140-400); RED BLOOD COUNT 4.83 x10^6/uL (3.50-5.40); RED CELL DISTRIBUTION WIDTH 14.2 % (11.5-14.5); WHITE BLOOD COUNT 22.5 x10^3/uL (4.0-11.0)
[2022-01-08] MEDS ORDERED: IOHEXOL 300 MG/ML 75 ML VIAL. IV ONE (14:45)
[2022-01-08 14:49] LABS: CREATININE 0.6 mg/dL (0.6-1.0); GFR 114.4; POTASSIUM 3.7 mmol/L (3.5-5.1)
--- NOTE | 2022-01-08 14:52 | PHYS DOC ---
Past History Past Medical History: Seizure Additional Past Medical Histor: c diff, colitis Past Surgical History: Alcohol Use: None Drug Use: Marijuana General Adult EDM: Chief Complaint: ABDOMINAL PAIN HPI: HPI: Patient is a 36-year-old female coming in for abdominal pain and diarrhea since this morning. Diarrhea is watery. Has had some nausea and retching but no vomiting. Complaining of generalized abdominal pain is worse in left lower quadrant. States she has had chills and vertigo, denies any fever. Has had similar episodes in the past and has a referral to GI for her recurrent intestinal issues Review of Systems: Review of Systems: All other systems within normal limits except for as noted in the HPI Current Medications: Current Meds: Current Medications Medications (Trade) Dose Ordered Sig/Jono Start Time Stop Time Status Last Admin Dose Admin Fentanyl Citrate (Fentanyl 2ml Vial) 50 mcg 1X ONCE 01/08/22 13:30 01/08/22 13:31 DC 01/08/22 14:06 50 MCG Info (Do NOT chart on this entry -- for MONITORING) 1 each PRN DAILY PRN 01/08/22 15:00 01/10/22 14:59 Iohexol (Omnipaque 300 Mg/ml) 75 ml 1X ONCE 01/08/22 14:45 01/08/22 14:46 DC Ondansetron HCl (Zofran) 4 mg 1X ONCE 01/08/22 13:30 01/08/22 13:31 DC 01/08/22 14:05 4 MG Sodium Chloride 1,000 ml @ 1,000 mls/hr 1X ONCE 01/08/22 13:30 01/08/22 14:29 DC 01/08/22 13:58 1,000 MLS/HR Allergies: Allergies: Allergies Coded Allergies Type Severity Reaction Last Updated Verified No Known Drug Allergies 12/07/16 No Physical Exam: PE: Constitutional: Well developed, well nourished, no acute distress, non-toxic appearance. [] HENT: Normocephalic, atraumatic, bilateral external ears normal, nose normal. [] Eyes: PERRLA, conjunctiva normal, no discharge. [] Neck: No rigidity, supple, no stridor. [] Cardiovascular: Regular rate and rhythm, brisk cap refill [] Lungs & Thorax: Non labored symmetric respirations, no tachypnea or respiratory distress [] Abdomen: Soft, nondistended, generalized abdominal tenderness worse in left lower quad. Skin: Warm, dry, no erythema, no rash. [] Back: Unremarkable Extremities: No deformities, range of motion grossly intact, no lower extremity edema [] Neurologic: Alert and oriented X 3, no focal deficits noted. [] Psychologic: Affect normal, judgement normal, mood normal. [] Current Patient Data: Labs: Laboratory Tests Test 01/08/22 13:02 01/08/22 13:50 Urine Collection Type Clean catch Urine Color Yellow Urine Clarity Hazy Urine pH 5.5 Urine Specific [place] >=1.030 Urine Protein Neg (NEG-TRACE) Urine Glucose (UA) Neg mg/dL (NEG) Urine Ketones (Stick) 40 mg/dL (NEG) Urine Blood Trace (NEG) Urine Nitrite Neg (NEG) Urine Bilirubin Neg (NEG) Urine Urobilinogen Dipstick 0.2 mg/dL (0.2 mg/dL) Urine Leukocyte Esterase Trace (NEG) Urine RBC 1-2 /HPF (0-2) Urine WBC 5-10 /HPF (0-4) Urine Squamous Epithelial Cells Many /LPF Urine Bacteria Mod /HPF (0-FEW) Stool Occult Blood Positive (NEG) White Blood Count 22.5 x10^3/uL (4.0-11.0) H Red Blood Count 4.83 x10^6/uL (3.50-5.40) Hemoglobin 14.2 g/dL (12.0-15.5) Hematocrit 44.0 % (36.0-47.0) Mean Corpuscular Volume 91 fL (79-100) Mean Corpuscular Hemoglobin 29 pg (25-35) Mean Corpuscular Hemoglobin Concent 32 g/dL (31-37) Red Cell Distribution Width 14.2 % (11.5-14.5) Platelet Count 288 x10^3/uL (140-400) Neutrophils (%) (Auto) 89 % (31-73) H Lymphocytes (%) (Auto) 4 % (24-48) L Monocytes (%) (Auto) 6 % (0-9) Eosinophils (%) (Auto) 1 % (0-3) Basophils (%) (Auto) 0 % (0-3) Neutrophils # (Auto) 20.1 x10^3uL (1.8-7.7) H Lymphocytes # (Auto) 0.9 x10^3/uL (1.0-4.8) L Monocytes # (Auto) 1.4 x10^3/uL (0.0-1.1) H Eosinophils # (Auto) 0.2 x10^3/uL (0.0-0.7) Basophils # (Auto) 0.0 x10^3/uL (0.0-0.2) Platelet Estimate Pending Vital Signs: Vital Signs Date Time Temp Pulse Resp B/P (MAP) Pulse Ox O2 Delivery O2 Flow Rate FiO2 01/08/22 14:06 18 98 Room Air 01/08/22 12:35 97.8 84 134/63 (86) EKG: EKG: [] Radiology/Procedures: Radiology/Procedures: [place] [address] IMAGING REPORT Signed PATIENT: BUTCH LAZO ACCOUNT: [id number] : 1985 LOCATION: ER AGE: 36 SEX: F EXAM STATUS: REG ER ORD. PHYSICIAN: IDA CÁRDENAS MD REASON: LLQ pain PROCEDURE: CT ABD PELV W/ IV CONTRST ONLY CT ABDOMEN+PELVIS W History: Left lower quadrant pain. Comparison: CT abdomen pelvis 08/20/2021 Technique: CT abdomen pelvis with intravenous contrast. Findings: The lung bases are clear. The liver, gallbladder, pancreas, spleen, adrenal glands, and kidneys are within normal limits. The bladder and uterus are unremarkable. There is a peripherally enhancing 1.8 cm and 1.1 cm left ovarian follicles. The stomach is distended by fluid and gas. The small bowel is unremarkable. Normal appendix. Fluid within the colon suggests possible diarrheal illness. No wall thickening or pericolonic inflammatory changes. No intra-abdominal free air or free fluid. Vascular structures are unremarkable. No adenopathy. Soft tissues are within normal limits. Osseous structures are u nremarkable. Impression: 1. No acute findings in the abdomen and pelvis. ------ Exposure: One or more of the following individualized dose reduction techniques were utilized for this examination: 1. Automated exposure control 2. Adjustment of the mA and/or kV according to patient size 3. Use of iterative reconstruction technique. Electronically signed by: Christiano Samson MD (01/08/2022 3:09 PM) [id number] DICTATED AND SIGNED BY: CHRISTIANO SAMSON MD DATE: 01/08/22 1503 CC: IDA CÁRDENAS MD; ALONA LI MD ~MTH0 0 [] Heart Score: C/O Chest Pain: No Risk Factors: Risk Factors: DM, Current or recent (<one month) smoker, HTN, HLP, family history of CAD, obesity. Risk Scores: Score 0 - 3: 2.5% MACE over next 6 weeks - Discharge Home Score 4 - 6: 20.3% MACE over next 6 weeks - Admit for Clinical Observation Score 7 - 10: 72.7% MACE over next 6 weeks - Early Invasive Strategies Course & Med Decision Making: Course & Med Decision Making Pertinent Labs and Imaging studies reviewed. (See chart for details) Patient states she is feeling better. Recommended admission for pancreatitis, patient declined admission and states that she wants to try outpatient treatment. States she has done it before with a liquid diet. Instructed to follow-up for stool labs in the next 2 days [] Dragon Disclaimer: Dragon Disclaimer: This electronic medical record was generated, in whole or in part, using a voice recognition dictation system. Departure Departure: Impression: Primary Impression: Diarrhea Additional Impressions: Pancreatitis UTI (urinary tract infection) Disposition: HOME / SELF CARE / HOMELESS Condition: STABLE Referrals: ALONA LI MD (PCP) Patient Instructions: Acute Pancreatitis Scripts Hydrocodone Bit/Acetaminophen (HYDROCODONE-APAP 5-325 ) 1 Each Tablet 1 TAB PO PRN Q6HRS PRN for PAIN for 3 Days, #10 TAB 0 Refills Prov: IDA CÁRDENAS MD 01/08/22 Loperamide HCl (Imodium A-D) 2 Mg Capsule 2 MG PO UD PRN for DIARRHEA, #20 CAP Take 2 tablets initially then take 1 tablet after every loose stool. Max dose 18 mg/day Prov: IDA CÁRDENAS MD 01/08/22 Ciprofloxacin Hcl (CIPRO) 500 Mg Tablet 1 TAB PO BID for antibiotic for 5 Days, #10 TAB 0 Refills Prov: IDA CÁRDENAS MD 01/08/22 Promethazine Hcl (PROMETHAZINE HCL) 25 Mg Tablet 1 TAB PO PRN Q6HRS PRN for NAUSEA, #20 TAB Prov: IDA CÁRDENAS MD 01/08/22 IDA CÁRDENAS MD Jan 08, 2022 14:52
[2022-01-08 14:56] LABS: ALBUMIN 4.3 g/dL (3.4-5.0); ALBUMIN/GLOBULIN RATIO 1.3 (1.0-1.7); TOTAL BILIRUBIN 0.3 mg/dL (0.2-1.0); TOTAL PROTEIN 7.7 g/dL (6.4-8.2)
[2022-01-08] MEDS ORDERED: CONTRAST GIVEN. MC PRN (15:00)
[2022-01-08 15:10] LABS: % BANDS 4 % (0-9); % LYMPHS 10 % (24-48); % MONOS 5 % (0-10); % SEGS 81 % (35-66); PLT ESTIMATE ADEQUATE (ADEQUATE)
--- NOTE | 2022-01-08 15:12 | RAD ---
CT ABDOMEN+PELVIS W History: Left lower quadrant pain. Comparison: CT abdomen pelvis 08/20/2021 Technique: CT abdomen pelvis with intravenous contrast. Findings: The lung bases are clear. The liver, gallbladder, pancreas, spleen, adrenal glands, and kidneys are w ithin normal limits. The bladder and uterus are unremarkable. There is a peripherally enhancing 1.8 c m and 1.1 cm left ovarian follicles. The stomach is distended by fluid and gas. The small bowel is unremarkable. Normal appendix. Fluid wi thin the colon suggests possible diarrheal illness. No wall thickening or pericolonic inflammatory ch anges. No intra-abdominal free air or free fluid. Vascular structures are unremarkable. No adenopathy. Soft tissues are within normal limits. Osseous structures are unremarkable. Impression: 1. No acute findings in the abdomen and pelvis. ------ Exposure: One or more of the following individualized dose reduction techniques were utilized for thi s examination: 1. Automated exposure control 2. Adjustment of the mA and/or kV according to patient size 3. Use of iterative reconstruction technique. Electronically signed by: Christiano Storey MD (01/08/2022 3:09 PM) [id number]
[2022-01-08 15:21] LABS: INFLUENZA A PATIENT NEGATIVE (NEGATIVE); INFLUENZA B PATIENT NEGATIVE (NEGATIVE)
[2022-01-08] MEDS ORDERED: LOPE-101 PO (15:43)
[2022-01-08] MEDS ORDERED: CIPR500T94 PO (15:43)
[2022-01-08] MEDS ORDERED: HYDR-2155 PO (15:43)
[2022-01-08] MEDS ORDERED: PROM25TA10 PO (15:43)
[2022-01-08 15:55] VITALS: BP 108/68
[2022-01-08 15:57] LABS: U PREG PATIENT NEGATIVE (NEG)
== END 2022-01-08 16:06 | disposition home or self-care (01) ==
LOC: ER 12:06
DX: N39.0 Urinary tract infection, site not specified (principal); K85.90 Acute pancreatitis without necrosis or infection, unspecified; R19.7 Diarrhea, unspecified; Z20.822 Contact with and (suspected) exposure to COVID-19; Z98.890 Other specified postprocedural states
CPT/HCPCS: 74177; 80053; 81001; 81025; 82274; 83690; 85007; 85025; 87086; 87428; 87493; 87505; 96361; 96374; 96375; 99285; C9803; J2405; J3010; J7030; Q9967; U0003

== ENCOUNTER 2022-04-01 12:19 | Emergency (ER) | payer MEDICAID ==
[~2022-04-01] VITALS: Ht 157.5 cm; Wt 53.5 kg
[~2022-04-01 12:19] MED LIST changes: +CIPR500T94 PO; +HYDR-2155 PO; +LOPE-101 PO; +PROM25TA10 PO
--- NOTE | 2022-04-01 12:39 | PHYS DOC ---
Past History Past Medical History: Seizure Additional Past Medical Histor: c diff, colitis (CARLENE BENSON APRN) Past Surgical History: (CARLENE BENSON APRN) Alcohol Use: None Drug Use: Marijuana (CARLENE BENSON APRN) General Adult EDM: Chief Complaint: ABDOMINAL PAIN HPI: HPI: Patient is a 37-year-old female who presents to the emergency department for suprapubic abdominal pain that started today with loose stools. She denies nausea, vomiting, diarrhea, fevers, urinary symptoms. She reports that she has had lightheadedness sensation feeling like the room is spinning. She denies any sick contacts or syncope. Patient has a history of seizures. (CARLENE BENSON APRN) Review of Systems: Review of Systems: Constitutional: SEE HPI Respiratory:SEE HPI Cardiovascular: SEE HPI GI: SEE HPI : SEE HPI Neurologic: SEE HPI (CARLENE BENSON APRN) Current Medications: Current Meds: Current Medications Medications (Trade) Dose Ordered Sig/Jono Start Time Stop Time Status Last Admin Dose Admin Fentanyl Citrate (Fentanyl 2ml Vial) 50 mcg 1X ONCE 04/01/22 12:45 04/01/22 12:46 UNV Ondansetron HCl (Zofran) 4 mg 1X ONCE 04/01/22 12:45 04/01/22 12:46 UNV Sodium Chloride 1,000 ml @ 1,000 mls/hr Q1H 04/01/22 12:45 04/01/22 13:44 UNV (CARLENE BENSON APRN) Allergies: Allergies: Allergies Coded Allergies Type Severity Reaction Last Updated Verified No Known Drug Allergies 12/07/16 No (CARLENE BENSON APRN) Physical Exam: PE: Constitutional: Well developed, well nourished, no acute distress, non-toxic appearance. [] HENT: Normocephalic, atraumatic, bilateral external ears normal, oropharynx moist, no oral exudates, nose normal. [] Eyes: PERRL, EOMI, conjunctiva normal, no discharge. [] Neck: Normal range of motion, no tenderness, supple, no stridor. [] Cardiovascular:Heart rate regular rhythm, no murmur [] Lungs & Thorax: Bilateral breath sounds clear to auscultation [] Abdomen: Bowel sounds normal, soft, suprapubic tenderness with palpation, no abdominal guarding or rigidity,, no masses, no pulsatile masses. [] Skin: Warm, dry, no erythema, no rash. [] Back: No tenderness, no CVA tenderness. [] Extremities: No tenderness, no cyanosis, no clubbing, ROM intact, no edema. [] Neurologic: Alert and oriented X 3, normal motor function, normal sensory function, no focal deficits noted. [] Psychologic: Affect normal, judgement normal, mood normal. [] (CARLENE BENSON APRN) Current Patient Data: Labs: Laboratory Tests Test 04/01/22 12:26 04/01/22 12:56 04/01/22 13:17 04/01/22 14:50 White Blood Count 14.8 x10^3/uL Red Blood Count 4.43 x10^6/uL Hemoglobin 13.0 g/dL Hematocrit 39.7 % Mean Corpuscular Volume 90 fL Mean Corpuscular Hemoglobin 29 pg Mean Corpuscular Hemoglobin Concent 33 g/dL Red Cell Distribution Width 14.3 % Platelet Count 274 x10^3/uL Neutrophils (%) (Auto) 81 % Lymphocytes (%) (Auto) 9 % Monocytes (%) (Auto) 8 % Eosinophils (%) (Auto) 2 % Basophils (%) (Auto) 0 % Neutrophils # (Auto) 12.0 x10^3uL Lymphocytes # (Auto) 1.4 x10^3/uL Monocytes # (Auto) 1.2 x10^3/uL Eosinophils # (Auto) 0.2 x10^3/uL Basophils # (Auto) 0.1 x10^3/uL Sodium Level 140 mmol/L Potassium Level 3.9 mmol/L Chloride Level 111 mmol/L Carbon Dioxide Level 16 mmol/L Anion Gap 13 Blood Urea Nitrogen 14 mg/dL Creatinine 0.6 mg/dL Estimated GFR (Cockcroft-Gault) 113.8 BUN/Creatinine Ratio 23 Glucose Level 112 mg/dL Calcium Level 9.1 mg/dL Total Bilirubin 0.4 mg/dL Aspartate Amino Transf (AST/SGOT) 12 U/L Alanine Aminotransferase (ALT/SGPT) 23 U/L Alkaline Phosphatase 76 U/L Troponin I High Sensitivity 7 ng/L Total Protein 7.1 g/dL Albumin 4.0 g/dL Albumin/Globulin Ratio 1.3 Lipase 117 U/L Bedside Urine HCG, Qualitative hcg negative Urine Collection Type Clean catch Urine Color Yellow Urine Clarity Clear Urine pH 5.5 Urine Specific Sherrill >=1.030 Urine Protein Neg Urine Glucose (UA) Neg mg/dL Urine Ketones (Stick) Neg mg/dL Urine Blood Trace Urine Nitrite Neg Urine Bilirubin Neg Urine Urobilinogen Dipstick 0.2 mg/dL Urine Leukocyte Esterase Trace Urine RBC Occ /HPF Urine WBC Occ /HPF Urine Squamous Epithelial Cells Many /LPF Urine Bacteria Few /HPF Urine Opiates Screen Neg Urine Methadone Screen Neg Urine Barbiturates Neg Urine Phencyclidine Screen Neg Urine Amphetamine/Methamphetamine Neg Urine Benzodiazepines Screen Neg Urine Cocaine Screen Neg Urine Cannabinoids Screen Pos Urine Ethyl Alcohol Neg Influenza Type A (Rapid) Negative Influenza Type B (Rapid) Negative SARS-CoV-2 Antigen (Rapid) Negative Current Medications Medications (Trade) Dose Ordered Sig/Jono Route PRN Reason Start Time Stop Time Status Last Admin Dose Admin Sodium Chloride 1,000 ml @ 1,000 mls/hr Q1H IV 04/01/22 12:45 04/01/22 13:44 DC 04/01/22 13:29 Fentanyl Citrate (Fentanyl 2ml Vial) 50 mcg 1X ONCE IVP 04/01/22 12:45 04/01/22 12:46 DC 04/01/22 13:29 Ondansetron HCl (Zofran) 4 mg 1X ONCE IVP 04/01/22 12:45 04/01/22 12:46 DC 04/01/22 13:29 Vital Signs: Vital Signs Date Time Temp Pulse Resp B/P (MAP) Pulse Ox O2 Delivery O2 Flow Rate FiO2 04/01/22 12:34 98.8 90 20 131/85 (100) 99 Room Air (CARLENE BENSON APRN) EKG: EKG: EKG performed by ER staff at 1230 shows sinus rhythm with a rate of 86, no STEMI read by Dr. Pierce at 1233. [] (CARLENE BENSON APRN) Radiology/Procedures: Radiology/Procedures: []PROCEDURE: CT ABDOMEN PELVIS WO CONTRAST INDICATION: Reason: LOWER ABDOMINAL PAIN / Spl. Instructions: / History: COMPARISON: January 08, 2022 TECHNIQUE: Axial CT images were obtained through the abdomen and pelvis with intravenous contrast. One or more of the following individualized dose reduction techniques were utilized for this examination: 1. Automated exposure control; 2. Adjustment of the mA and/or kV according to patient size; 3. Use of iterative reconstruction technique. FINDINGS: Vascular: No abdominal aortic aneurysm. Hepatobiliary: Liver is prominent in size. Pancreas: Limited assessment without contrast. Spleen: Spleen unremarkable. Renal/Bladder: No hydronephrosis. Urinary bladder has minimal urine within it at time of exam. Gastrointestinal: The appendix is partially seen without definite adjacent inflammatory changes. Small free fluid in the pelvis. Prominent fluid in small and large bowel which could be from liquid stool. Degenerative changes spine. IMPRESSION: * No evidence of bowel obstruction. * No hydronephrosis. Electronically signed by: Vish Gutierrez MD (04/01/2022 1:27 PM) [id number] DICTATED AND SIGNED BY: VISH GUTIERREZ MD DATE: 04/01/221314 CC: ALONA LI MD; EMERGENCY,DEPARTMENT; CARLENE BENSON APRN ~ (CARLENE BENSON APRN) Heart Score: C/O Chest Pain: N/A Risk Factors: Risk Factors: DM, Current or recent (<one month) smoker, HTN, HLP, family history of CAD, obesity. Risk Scores: Score 0 - 3: 2.5% MACE over next 6 weeks - Discharge Home Score 4 - 6: 20.3% MACE over next 6 weeks - Admit for Clinical Observation Score 7 - 10: 72.7% MACE over next 6 weeks - Early Invasive Strategies (CARLENE BENSON APRN) Course & Med Decision Making: Course & Med Decision Making Pertinent Labs and Imaging studies reviewed. (See chart for details) [] Patient presents to the emergency department for lower abdominal pain with loose stools. Work-up in the ER consisted of blood work including lipase, urinalysis and CT imaging of abdomen and pelvis without contrast due to national shortage. Due to patient's complaint of dizziness, she will have troponin and EKG performed. Patient treated with IV fluids, nausea and pain medication. Patient had mild leukocytosis with a white blood cell count 14.8. Remainder of patient's lab work is mostly unremarkable. Negative flu and COVID testing. CT imaging did not show any acute findings. Patient reports vaginal discharge to the emergency department nurse therefore GC chlamydia testing and wet prep was done. Negative wet prep. GC chlamydia testing pending, patient advised to avoid sexual intercourse until she receives results. Patient's urinalysis does show a urinary tract infection which will be treated with an antibiotic. Upon reevaluation of patient, she is asleep. She reports that her symptoms have completely resolved. Her vital signs are stable. I discussed with patient all findings and diagnostic testing as well as the need to follow-up with PCP for further evaluation and treatment or return to the ER if any new or worsening symptoms. Strict return precautions were also discussed at length. Patient voiced understanding and agreement with the plan. Patient is hemodynamically stable at the time of disposition. (CARLENE BENSON APRN) Dragon Disclaimer: Dragon Disclaimer: This electronic medical record was generated, in whole or in part, using a voice recognition dictation system. (CARLENE BENSON APRN) Attending Co-Sign The patient was seen and interviewed as well as examined at the bedside. The chart was reviewed. The case was discussed. Agree with the plan of care. (WERNER PIERCE DO) Departure Departure: Impression: Primary Impression: Urinary tract infection Qualified Codes: N30.01 - Acute cystitis with hematuria Disposition: HOME / SELF CARE / HOMELESS Condition: GOOD Referrals: ALONA LI MD (PCP) Patient Instructions: Urinary Tract Infection Additional Instructions: You are seen in the emergency department for abdominal pain. You were noted to have a urinary tract infection which will be treated with an antibiotic. Please start and finish the antibiotic completely. Increase your fluids and avoid bladder irritants like caffeine, sugary beverages and alcohol. You can take Tylenol and ibuprofen at home for your pain. We tested you for gonorrhea and chlamydia while in the emergency department and you will receive your results and 2 to 3 days. Please avoid sexual intercourse until you receive these results. If you are positive you will need to have treatment at your local health department. Follow-up with your primary care provider tomorrow regarding your ER visit. Return to the emergency department if you develop worsening of your abdominal pain, high fevers refractory treatment, intractable nausea or vomiting, blood in your stools or vomit. Scripts Cephalexin (KEFLEX) 500 Mg Capsule 1 CAP PO BID for uti for 7 Days, #14 CAP 0 Refills Prov: CARLENE BENSON APRN 04/01/22 CARLENE BENSON APRN April 01, 2022 12:39 WERNER PIERCE DO April 02, 2022 11:31
[2022-04-01] MEDS ORDERED: IV NORMAL SALINE 1,000ML 1,000 ML IV SCH (12:45)
[2022-04-01] MEDS ORDERED: ONDANSETRON PF 4 MG/2 ML VIAL. IVP ONE (12:45)
[2022-04-01 12:59] LABS: BASO # 0.1 x10^3/uL (0.0-0.2); BASO % 0 % (0-3); EOS # 0.2 x10^3/uL (0.0-0.7); EOS % 2 % (0-3); HEMATOCRIT 39.7 % (36.0-47.0); LYMPH # 1.4 x10^3/uL (1.0-4.8); LYMPH % 9 % (24-48); MEAN CORPUSCULAR HEMOGLOBIN 29 pg (25-35); MEAN CORPUSCULAR HGB CONC 33 g/dL (31-37); MEAN CORPUSCULAR VOLUME 90 fL (79-100); MONO # 1.2 x10^3/uL (0.0-1.1); MONO % 8 % (0-9); NEUT % 81 % (31-73); PLATELET COUNT 274 x10^3/uL (140-400); RED BLOOD COUNT 4.43 x10^6/uL (3.50-5.40); RED CELL DISTRIBUTION WIDTH 14.3 % (11.5-14.5); WHITE BLOOD COUNT 14.8 x10^3/uL (4.0-11.0)
[2022-04-01 13:10] LABS: CALCIUM 9.1 mg/dL (8.5-10.1); CREATININE 0.6 mg/dL (0.6-1.0); GFR 113.8; POTASSIUM 3.9 mmol/L (3.5-5.1)
[2022-04-01 13:16] LABS: ALBUMIN/GLOBULIN RATIO 1.3 (1.0-1.7); TOTAL BILIRUBIN 0.4 mg/dL (0.2-1.0); TOTAL PROTEIN 7.1 g/dL (6.4-8.2)
--- NOTE | 2022-04-01 13:29 | RAD ---
INDICATION: Reason: LOWER ABDOMINAL PAIN / Spl. Instructions: / History: COMPARISON: January 08, 2022 TECHNIQUE: Axial CT images were obtained through the abdomen and pelvis with intravenous contrast. One or more of the following individualized dose reduction techniques were utilized for this examinat ion: 1. Automated exposure control; 2. Adjustment of the mA and/or kV according to patient size; 3 . Use of iterative reconstruction technique. FINDINGS: Vascular: No abdominal aortic aneurysm. Hepatobiliary: Liver is prominent in size. Pancreas: Limited assessment without contrast. Spleen: Spleen unremarkable. Renal/Bladder: No hydronephrosis. Urinary bladder has minimal urine within it at time of exam. Gastrointestinal: The appendix is partially seen without definite adjacent inflammatory changes. Smal l free fluid in the pelvis. Prominent fluid in small and large bowel which could be from liquid stool . Degenerative changes spine. IMPRESSION: * No evidence of bowel obstruction. * No hydronephrosis. Electronically signed by: Esteban Vieira MD (04/01/2022 1:27 PM) [id number]
[2022-04-01 14:12] LABS: BACTERIA,URINE FEW /HPF (0-FEW); CLARITY,URINE CLEAR; COLOR,URINE YELLOW; GLUCOSE,URINE NEG (NEG); NITRITE,URINE NEG (NEG); RBC,URINE OCC /HPF (0-2); SQUAMOUS EPITHELIAL CELL,UR MANY /LPF; UROBILINOGEN,URINE 0.2 mg/dL (0.2 mg/dL); WBC,URINE OCC /HPF (0-4)
[2022-04-01 14:25] LABS: AMPHETAMINE/METHAMPHETAMINE NEG (NEG); BARBITURATES NEG (NEG); BENZODIAZEPINES NEG (NEG); CANNABINOIDS POS (NEG); COCAINE NEG (NEG); METHADONE NEG (NEG); OPIATES NEG (NEG); PHENCYCLIDINE NEG (NEG)
[2022-04-01 15:21] LABS: INFLUENZA A PATIENT NEGATIVE (NEGATIVE); INFLUENZA B PATIENT NEGATIVE (NEGATIVE)
[2022-04-01] MEDS ORDERED: CEPH500C PO (15:36)
[2022-04-01 15:43] VITALS: BP 120/59
[2022-04-04 06:15] LABS: CHLAMYDIA PROBE Negative (Negative)
== END 2022-04-01 15:51 | disposition home or self-care (01) ==
LOC: ER 12:19
DX: N30.01 Acute cystitis with hematuria (principal); Z20.822 Contact with and (suspected) exposure to COVID-19; Z98.890 Other specified postprocedural states
CPT/HCPCS: 36415; 74176; 80053; 80307; 81001; 81025; 83690; 84484; 85025; 87086; 87428; 87491; 87591; 93005; 96361; 96374; 96375; 99285; J2405; J3010; J7030; Q0111